=== PATIENT | male | born 1985 | race Caucasian/White ===

== ENCOUNTER 2023-11-06 15:16 | Outpatient (CLI) | payer MEDICAID, SELFPAY ==
--- NOTE | 2023-11-06 14:06 | DI.RAD_ITS ---
Exam(s) XR HIP PELVIS ADULT BL EXAM: XR HIP PELVIS ADULT BL CLINICAL HISTORY: eval L > R hip pain and restricted motion. TECHNIQUE: 2D digital imaging was performed. COMPARISON: No exams were available for comparison FINDINGS: 3 views No evidence of pelvic nor hip moderate degenerative changes in both hips. More so on the left side. Bone density normal. No osseous lesions IMPRESSION: Significant osteoarthritic changes both knees. DATA REPOSITORY: RADIATION DOSE DELIVERED:
--- NOTE | 2023-11-06 14:06 | DI.RAD_ITS ---
Exam(s) XR KNEE LT 4V AP,LAT,GREY,PAT EXAM: XR KNEE LT 4V AP,LAT,GREY,PAT CLINICAL HISTORY: eval anterolateral left knee pain. TECHNIQUE: 2D digital imaging was performed. COMPARISON: No exams were available for comparison FINDINGS: Four views No evidence of fracture. Small amount of increased joint fluid. No large joint effusion. There is no joint space narrowing. All 3 compartments exhibit normal height and no osteophytes nor degenerati ve subarticular cysts noted. No patellar off tracking. No osseous lesions. Bone density normal. IMPRESSION: No significant osseous findings in the knee. Subtle suggestion small amount of increased joint fluid . DATA REPOSITORY: RADIATION DOSE DELIVERED:
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
== END 2023-11-06 15:17 | disposition home or self-care (01) ==
LOC: DIORS 15:16
PROVIDERS: PCP Nurse Practitioner; Visit Provider Student in an Organized Health Care Education/Training Program
DX: M17.0 Bilateral primary osteoarthritis of knee (principal)
CPT/HCPCS: 73521; 73564

== ENCOUNTER 2024-01-22 05:08 | Outpatient (CLI) | payer MEDICAID, SELFPAY ==
[2024-01-22 10:31] LABS: HCT 45.5 % (40.0-50.0); HGB 15.7 g/dL (13.5-17.5); MCH 31.3 pg (27.0-33.0); MCHC 34.5 % (32.0-36.0); MCV 91 fL (80-95); MPV 10.4 fL (8.0-11.0); Platelet Count 238 10^3/uL (130-400); RBC 5.02 10^6/uL (4.36-5.78); RDW 12.2 % (11.8-14.1); RDW-SD 40.3 fL; WBC 4.92 10^3/uL (4.4-10.8)
[2024-01-22 10:44] LABS: Anion Gap 9.8 mmol/L (3-11); BUN 20 mg/dL (7-18); CO2 28.2 mmol/L (21.0-32.0); CREATININE 0.8 mg/dL (0.70-1.30); Calcium 9.3 mg/dL (8.5-10.1); Chloride 103 mmol/L (98-107); Estimated GFR 117.63 (mL/min/1.73m2); Glucose 96 mg/dL (74-106); Sodium 141 mmol/L (136-145)
== END 2024-01-22 05:09 | disposition home or self-care (01) ==
LOC: LBO 05:08
PROVIDERS: PCP Nurse Practitioner; Visit Provider Student in an Organized Health Care Education/Training Program
DX: Z01.818 Encounter for other preprocedural examination; M16.0 Bilateral primary osteoarthritis of hip
CPT/HCPCS: 36415; 80048; 85027; 86850; 86900; 86901

== ENCOUNTER 2024-02-04 08:35 | Day surgery (SDC) | payer MEDICAID, SELFPAY ==
[2024-02-04] VITALS (14 sets, daily range): BP systolic 94–170; BP diastolic 55–143; PULSE 64–706; RESP 14–27; TEMP 36.2–36.7; O2SAT 98–100; BMI 25.2
--- NOTE | 2024-02-04 07:25 | PDOC.DSDIS_ITS ---
Date of service: 02/04/24 Time of Service: 07:25 Discharge Plan Disposition Patient Disposition: Home Condition: Good Discharge Details Reason For Visit: B/L THR Attending Provider: Aj Mercado Primary Care Provider: Yamilka Serra Home Meds and New Rx's Prescriptions: New celecoxib 200 mg capsule 200 mg PO BID Qty: 60 0RF aspirin 81 mg tablet,delayed release (DR/EC) 81 mg PO BID Qty: 60 0RF acetaminophen 500 mg tablet 1,000 mg PO TID Qty: 90 3RF pantoprazole 40 mg tablet,delayed release (DR/EC) 40 mg PO DAILY Qty: 30 0RF dexamethasone 4 mg tablet 4 mg PO DAILY Qty: 2 0RF oxycodone 5 mg tablet 5 mg PO Q4H MDD 6 tabs PRN (Reason: pain) Qty: 20 0RF Continued cholecalciferol (vitamin D3) 50 mcg (2,000 unit) capsule 50 mcg PO DAILY Patient Comments: 1 gummie daily methocarbamol 500 mg tablet 500 - 1,000 mg PO TID PRN (Reason: muscle spasm) Qty: 30 1RF Rx Instructions: Muscle spasm valacyclovir 1 gram tablet 2,000 mg PO BID PRN (Reason: cold sores) Qty: 12 12RF Rx Instructions: 2 tabs BID for one day. Use PRN. omega-3 fatty acids-fish oil 360-1,200 mg capsule 1 cap PO DAILY No Action prednisone 1 mg tablet 1 mg PO QDAY Discharge Instructions Additional Instructions: Total Hip Discharge Instructions Activity: The most important activity is to walk. You should try to take short walks a few times a day. You have no restrictions on movement or positioning, but do not try to force what you do. You will find some stiffness and weakness with hip flexion (lifting your knee). Do not try to strengthen this too early, continue to practice walking and stairs and this will come. - Outpatient physical therapy can be helpful to help return you to a normal gait and improve your flexibility and strength. This can start around 2 weeks. For some patients, it?s not necessary. Usually this is determined at the time of discharge or at the first post-operative visit. - You should wear the HODAN hose on both legs for 2 weeks. Dressing: Keep the surgical dressing in place for at least one week. After the first week it may be removed and replace with light gauze and tape or nothing. It may get wet after 3 days but avoid soaking the dressing. If it gets wet, just lightly pat dry. It is important to always keep some gauze between skin folds, especially when you are sitting. Spend some time with the wound exposed when you are lying flat as the incision does wrinkle onto itself. Medications: - You should take Tylenol and an anti-inflammatory Celebrex as your primary pain control medications. If the Celebrex is too expensive or not covered, please call the office for another alternative (Advil/Ibuprofen or Naproxen/Aleve). - You have been prescribed a stronger pain medication Oxycodone for breakthrough pain, take as needed as prescribed. - You have also been prescribed a stomach acid reduction agent Pantoprozole to help reduce stomach acid and reflux. - You have also been prescribed Decadron to help with post-operative nausea and pain. You will take this for two days starting tomorrow. - You will be taking Aspirin 81mg twice a day for DVT prevention unless instructed otherwise. - If you have constipation you should take Colace or Miralax (both [id number]). It takes most people 3-4 days to have a bowel movement. Follow-up: 2 weeks If you have any acute concerns or questions, please do not hesitate to contact the office at [phone]. You may contact Dr. Mercado with any questions after hours through the hospital at [phone] or on his cell phone at [phone]. Stand Alone Forms: Anesthesia Discharge InstAnthony, Leif Randolph ([facility]) Referrals: Aj Mercado MD [ [facility] STAFF PHYSICIAN] - 02/19/24 9:00 am Equipment/Supplies: Walker Activity:: Activity as Tolerated Shower/Bathe:: 72 hours Diet:: As Tolerated Discharge Orders Discharge Orders: Discharge Order (Routine); Ordered 02/04/24 Ordered By: Dino Palacios DS: Diagnosis Discharge Diagnosis (1) Primary localized osteoarthritis of right hip: Status: Acute (2) Primary osteoarthritis of left hip: Status: Acute
[2024-02-04] MEDS: Acetaminophen 500 MG TAB 1000 MG PO (09:14)
[2024-02-04] MEDS: Celecoxib 200 MG CAP 400 MG PO (09:14)
[2024-02-04] MEDS: Lactated Ringers 1,000 ML 80 ML IV (09:17)
--- NOTE | 2024-02-04 09:19 | ANES.PREOP_ITS ---
General Info Date of Service Date Performed: 02/04/24 Height: 5 ft 11 in Weight: 82.3 kg Body Mass Index (BMI): 25.2 Surgical Procedure: Operation Date: 02/04/24 11:30 Proposed Procedure Side Surgeon p Hip Total Hip Anterior Bilateral Bilateral Aj Mercado MD Meds Allergies and Home Medications Allergies Allergy/AdvReac Type Severity Reaction Status Date / Time No Known Allergies Allergy Verified 02/02/24 12:42 Home Medication Medication Instructions Recorded omega-3 fatty acids-fish oil 360 1 cap PO DAILY 11/28/21 mg-1,200 mg capsule cholecalciferol (vitamin D3) 50 50 mcg PO DAILY 10/15/22 mcg (2,000 unit) capsule methocarbamol 500 mg tablet 500 - 1,000 mg (1 - 2 x 500 mg) PO 07/14/23 TID PRN muscle spasm #30 tabs valacyclovir 1 gram tablet 2,000 mg (2 x 1 gram) PO BID PRN 07/14/23 cold sores #12 tabs acetaminophen 500 mg tablet 1,000 mg (2 x 500 mg) PO TID #90 02/04/24 tabs aspirin 81 mg tablet,delayed 81 mg PO BID #60 tabs 02/04/24 release celecoxib 200 mg capsule 200 mg PO BID #60 caps 02/04/24 dexamethasone 4 mg tablet 4 mg PO DAILY #2 tabs 02/04/24 oxycodone 5 mg tablet 5 mg PO Q4H PRN pain #20 tabs 02/04/24 pantoprazole 40 mg tablet,delayed 40 mg PO DAILY #30 tabs 02/04/24 release prednisone 1 mg tablet 1 mg PO QDAY 02/04/24 Current Visit Medications: Current Medications Generic Name Dose Route Start Last Admin Trade Name Freq PRN Reason Stop Dose Admin Acetaminophen 1,000 mg 02/04/24 06:00 Acetaminophen 500 Mg Tab PO 03/05/24 05:59 PREOP DIO Acetaminophen 1,000 mg 02/04/24 07:22 Acetaminophen 500 Mg Tab PO 03/05/24 07:21 TID PRN PRN Analgesia Celecoxib 400 mg 02/04/24 06:00 Celecoxib 200 Mg Cap PO 03/05/24 05:59 PREOP DIO Docusate Sodium 100 mg 02/04/24 07:22 Docusate Sodium 100 Mg Cap PO 03/05/24 07:21 BID PRN PRN Constipation Ringer's Solution 1,000 mls @ 80 mls/hr 02/04/24 06:00 IV 03/04/24 23:59 INFUSION DIO Cefazolin Sodium/Dextrose 2 gm in 50 mls @ 100 mls/hr 02/04/24 06:00 Ancef Duplex IVPB 03/04/24 23:59 PREOP DIO Tranexamic Acid/Sodium Chloride 1,000 mg in 100 mls @ 600 mls/hr 02/04/24 06:00 IVPB 03/04/24 23:59 PREOP DIO Tranexamic Acid/Sodium Chloride 1,000 mg in 100 mls @ 600 mls/hr 02/04/24 06:00 IVPB 03/04/24 23:59 DIRECTED [facility] IV Miscellaneous Supplies 1 each 02/04/24 06:00 Iv Access IV 03/04/24 23:59 DIRECTED DIO Ondansetron HCl 4 mg 02/04/24 07:22 Ondansetron 4 Mg/2 Ml Vial IVP 03/05/24 07:21 Q6H PRN PRN Nausea Oxycodone HCl 0 mg 02/04/24 07:22 Oxycodone 5 Mg Tab PO 03/05/24 07:21 Q3H PRN PRN Pain Pantoprazole Sodium 40 mg 02/05/24 07:30 Pantoprazole 40 Mg Tabcr PO 03/06/24 07:29 DAILY@0730 DIO Polyethylene Glycol 17 gm 02/04/24 07:22 Polyethylene Glycol 3350 17 Gm Packet PO 03/05/24 07:21 BID PRN PRN Constipation Sodium Chloride 0 ml 02/04/24 06:00 Normal Saline Flush 10 Ml Syr IV 03/04/24 23:59 PRN PRN Sodium Chloride 0 ml 02/04/24 06:00 Normal Saline 10 Ml Vial IJ 03/04/24 23:59 DIRECTED PRN Sterile Water 0 ml 02/04/24 06:00 Water,Injection,Sterile 10 Ml Vial IJ 03/04/24 23:59 DIRECTED PRN PFSH Active Problems Active Problems: Problem Status Onset Code Iliotibial band syndrome, left leg M76.32 Primary localized osteoarthritis of right hip M16.11 Primary osteoarthritis of left hip M16.12 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 Vital Signs and Lab Results Vital Signs Most Recent Vital Signs in EMR: Most Recent Vital Signs Temp Pulse Resp BP Pulse Ox 36.7 C 64 16 103/66 99 02/04/24 09:03 02/04/24 09:03 02/04/24 09:03 02/04/24 09:03 02/04/24 09:03 Lab Results Blood Type / Crossmatch: Patient ABO/Rh A Positive 01/22/24 Antibody Screen NEGATIVE 01/22/24 Complete Blood Count: White Blood Count 4.92 10^3/uL (4.4-10.8) 01/22/24 10:05 Red Blood Count 5.02 10^6/uL (4.36-5.78) 01/22/24 10:05 Hemoglobin 15.7 g/dL (13.5-17.5) 01/22/24 10:05 Hematocrit 45.5 % (40.0-50.0) 01/22/24 10:05 Platelet Count 238 10^3/uL (130-400) 01/22/24 10:05 Complete Metabolic Panel: Sodium 141 mmol/L (136-145) 01/22/24 10:05 Potassium 4.0 mmol/L (3.5-5.1) 01/22/24 10:05 Chloride 103 mmol/L (98-107) 01/22/24 10:05 Carbon Dioxide 28.2 mmol/L (21.0-32.0) 01/22/24 10:05 BUN 20 mg/dL (7-18) H 01/22/24 10:05 Creatinine 0.8 mg/dL (0.70-1.30) 01/22/24 10:05 Est GFR (CKD-EPI 2020) 117.63 (mL/min/1.73m2) 01/22/24 10:05 Calcium 9.3 mg/dL (8.5-10.1) 01/22/24 10:05 Glucose 96 mg/dL (74-106) 01/22/24 10:05 Liver Function Panel: No Data to Display Coagulation Panel: No Data to Display Cardiac Panel: No Data to Display Arterial Blood Gas: No Data to Display Venous Blood Gas: No Data to Display Pancreas Panel: No Data to Display Thyroid Panel: No Data to Display Infectious Disease: No Data to Display Blood Cultures: No Data to Display Toxicology Panel: No Data to Display Anesthesia Assessment and Plan Anesthesia History Personal History: No History of Anesthesia Complications Family History: No Family History of Anesthesia Complications Exercise Tolerance Exercise Tolerance: Metabolic Equivalents>4 Cardiac & Pulmonary Exam Cardiac Exam: Normal S1/S2 Heart Sounds Pulmonary Exam: Wheezing Present (slight wheeze, lower .) Implantable Cardiac Device Does patient have a Pacemaker or an ICD?: No Airway Exam Known Difficult Airway: No Mallampati Class: 2 Mouth Opening: Normal (> 3cm) Thyromental Distance: Greater than 3 cm Facial Hair: Full Bird Neck Range of Motion: Full ROM Neck Circumference: Normal Teeth Condition: Normal Dentition ASA Classification ASA Score: ASA 2 Emergency Case?: No NPO Status NPO Status: NPO Clears >2 hours, Solids >8 hours Anesthesia Plan Resuscitation Status: Full Code Anesthesia Technique: Spinal Anesthesia Airway Planned: Natural Airway Monitors Used: Standard Monitors Preoperative Comments:: 38 yo male for bilateral SHEEBA. Sig PMHx: denies major. Occ EtOH/cannabis. Discussed spinal vs general, is interested in spinal. Discussed timing of spinal and potential need for conversation to [place].
[2024-02-04] MEDS: ceFAZolin 2 GM/50 ML BAG IVPB (10:26)
[2024-02-04] MEDS: TRANEXAMIC ACID/SOD. CHL. 1,000 MG/100 ML BAG 600 MG IVPB ×2 (10:36→12:20)
--- NOTE | 2024-02-04 11:55 | DI.RAD_ITS ---
Exam(s) XR HIP LT IN OR EXAM: XR HIP LT IN OR CLINICAL HISTORY: PRIMARY OA LEFT HIP. TECHNIQUE: 2D and realtime digital imaging was performed. COMPARISON: CR XR HIP PELVIS ADULT BL from 11/06/2023 FINDINGS: A hard copy image shows placement of a left hip prosthesis. The alignment appears satisfactory. Please see procedure note for details. Fluoro time: 35.5seconds RADIATION DOSE DELIVERED: Ka,r=3.44 mGy
--- NOTE | 2024-02-04 13:19 | DI.RAD_ITS ---
Exam(s) XR HIP RT IN OR EXAM: XR HIP RT IN OR CLINICAL HISTORY: PRIMARY OA RIGHT HIP. TECHNIQUE: 2D and realtime digital imaging was performed. COMPARISON: CR XR HIP PELVIS ADULT BL from 11/06/2023 XA XR HIP LT IN OR from 02/04/2024 FINDINGS: A hard copy image shows placement of a hip prosthesis. The alignment appears satisfactory. Please see procedure note for details. Fluoro time: 35.9seconds RADIATION DOSE DELIVERED: karen Del Rosario=4.01 mGy
[2024-02-04] MEDS: fentaNYL 100 MCG/2 ML VIAL IVP ×2 (14:07→14:11)
[2024-02-04] MEDS: HYDROmorphone 2 MG/ML SYR IVP ×2 (14:19→14:32)
--- NOTE | 2024-02-04 14:49 | W.PM.OP ---
Date of service: 02/04/24 Time of Service: 11:00 Operative Note Operative Note DATE OF PROCEDURE: 02/04/24 PRE-OP DIAGNOSIS: Bilateral Hip Osteoarthritis POST-OP DIAGNOSIS: same PROCEDURE: Bilateral Anterior Total Hip Arthroplasty with Intraoperative Navigation SURGEON: Aj Mercado SHOULDER PUNCHER: Dino Palacios ANESTHESIA TYPE: General LMA/ETT and Spinal Refer to Anesthesia Record ESTIMATED BLOOD LOSS: 500 PATHOLOGY: none sent COMPLICATIONS: None Patient was transported to: PACU Patient's condition: stable Implants: RIGHT: 1. Depuy [place] Acetabular Component, 52mm 2. Depuy Acetabular Liner, [id number] 3. Depuy Actis High Offset Femoral Stem, Size 3 4. Depuy Altrx Ceramic Femoral Head, Size 36+1.5mm LEFT: 1. Depuy [place] Acetabular Component, 54mm 2. Depuy Acetabular Liner, [id number] 3. Depuy Actis High Offset Femoral Stem, Size 3 4. Depuy Altrx Ceramic Femoral Head, Size 36+1.5mm Indications: I have seen Amy in clinic for symptoms of hip arthritis, confirmed with radiographic findings. Amy has exhausted nonoperative methods and was having significant limitations in daily function and desired better function and less pain. I discussed the technical details of a hip replacement. I explained the risks of the procedure to include, but not limited to, bleeding, infection, pain, stiffness, fracture, damage to nerves and vessels, damage to muscles and tendons, loosening, instability, leg length inequality, need for repeat procedure, blood clot and cardiopulmonary demise. Despite these risks, Amy elected to proceed. Findings: There was significant signs of arthritis throughout both hips with deformity of the femoral head and large osteophytes. There was a loose, calcified anterior labrum of the right hip. Procedure Description: Amy was greeted in the preoperative holding area where the correct side was identified and marked. The consent was reviewed with the patient and signed. The history and physical was updated. All questions were answered. He was taken back to the operating room. A spinal anesthestic was then administered. The patient was placed into the supine position on the HANA table. Both feet were wrapped with Webrill cotton wrap along with Coban. LEFT Side The feet were placed in specialized boots for the HANA table, well seated within the boot and secured. SCDs were applied. The patient was then slid down onto a peroneal post. A preoperative AP hip was obtained to serve as a reference for determining leg lengths. Prophylactic antibiotics in the form of Cefazolin were administered. 1g of Tranxemic Acid was given intravenously within 30 minutes of incision. The left leg was then prepped with Chloraprep and draped in a standard fashion. A second prep with Chloraprep was performed prior to placement of a shower-curtain type drape with Iodine impregnated skin protection. A timeout to confirm correct identity, side and site, procedure, allergies, anesthesia, and medical concerns was performed. An obliquely oriented incision was made starting lateral to the ASIS and running distal over the Tensor Fascia Jill (TFL) muscle belly toward the fibular head, approximately 10cm. The skin and soft tissue was dissected sharply, through Bharath?s fascia, and to the fascia of the TFL. During this approach he seemed to react to the surgery and was thus converted to a general anesthetic. Then, with the fascia and superior border of the IT band identified, the fascia was incised with a new knife just above any perforators from the IT band. The TFL muscle belly was bluntly dissected away from the fascia and moved laterally. The fat between TFL and rectus was identified to ensure the dissection was not within the TFL. Blunt dissection created space between abductors and the capsule and retractor was placed over the lateral femoral neck. The fibers of the rectus femoris tendon were identified and these were freed from the anterior capsule. A second cobra retractor was placed around the medial femoral neck. The TFL was further retracted laterally to show the deep fascia. Careful dissection through this layer identified three main crossing vessels of the lateral femoral circumflex. These were cauterized in multiple locations and then cut without any noticeable bleeding. The TFL was further released bluntly from the deep fascia to expose anterior hip capsule and fat The James orthopaedic retractor was then placed beneath the TFL and against sartorius and medial soft tissues to protect and retract the soft tissues. A T-capsulotomy was then performed starting at the superior lateral acetabulum and moving distally to the intertrochanteric ridge. These capsular flaps were tagged with a No. 1 Ethibond and elevated from within. The capsular flaps were released to the shoulder of the lateral neck and to the lesser trochanter to give excellent visualization of the proximal femur. A neck osteotomy was performed using an oscillating saw based on preoperative templates. This cut started in the shoulder and of the lateral neck and exited medially. The saw was at all times directed medially to avoid injury to the greater trochanter. Gentle traction was applied to the leg and the osteotomy opened. The femoral head was removed with a corkscrew, making sure to protect the TFL on its exit. This was measured on the back table to determing the starting reamer size. Portions of the rectus obscuring visualization were minimally elevated off the superior acetabulum. An anterior retractor was placed over the anterior wall between capsule and labrum and attached to the Gripper retraction system. A posterior retractor was placed similarly. This provided excellent visualization. The contents of the cotyloid fossa were removed with electrocautery and the labrum was removed with a knife. There was a notable floor osteophyte. There was significant chondromalacia of the superior acetabulum. Acetabular reaming began with a 48mm reamer. This first reaming was directed anterior to posterior and medial to get down to the true floor. This was inspected and reamed until the true floor was reached. The anterior retractor was then released and entry and exit was provided by traction on the capsular flaps. I then reamed sequentially up to a 54mm reamer where good fit was obtained. The larger reamers were oriented based on anatomical reference of the anterior and lateral tate to ensure proper abduction and anteversion. Positioning and size was confirmed with the fluoroscopy. A 54mm Depuy [place] acetabular component was selected. The deep tissues were irrigated. The acetabular component was then impacted in a position of about 40-45 degrees of abduction and 15-20 degrees of anteversion, using the patient?s anatomy as the ultimate landmark. Fluoroscopy was used to confirm this. There was excellent audio operator of the acetabular component and the inserting handle was removed. The acetabular liner, Depuy [id number] polyethylene liner, was inserted and lined up with the tines of the acetabular component. There was no soft tissue interposition. The liner was then impacted into position and confirmed to be well-seated. A portion of the chinyere-articular cocktail was then injected around the acetabulum into the capsule and periosteum. This cocktail consisted of 123mg of Ropivacaine, 0.25mg of Epinephrine, 0.04mg of Clonidine, and 15mg of Ketorolac, diluted to 50cc. Traction was released from the femur. The leg was rotated to 120 degrees. Any remaining medial capsule was released until the lesser trochanter was easily palpable. A North retractor was placed medially. The lateral capsule was further released into the shoulder to allow access to the greater trochanter. A North retractor was placed over the greater trochanter which allowed the trochanter to flip in front of the capsule for excellent exposure. The leg was brought down into maximal extension and 20 degrees of adduction while ensuring there was no impingement on the acetabulum. Any remnant capsule within the trochanter was released. Piriformis and obturator externis were identified and protected. There was excellent access to the proximal femur. The lateral neck remnant was removed with a rongeur. A blunt canal probe was used to identify the canal and trajectory for later broaching. His bone was extremely dense that even the point canal probe had difficulties with finding a path. A box osteotome initiated the broach course with similar difficulty given his bone density. A small curved rasp and a curved curette were used to work laterally. Broaching then began with a starter Actis broach. This was inserted manually around the trochanter and into the canal before mallet blows. The broach was seated to a few millimeters below the cut level based on the neck cut and the preoperative template. Sequential broaching was continued with the Peeppl Mediase pneumatic broaching device until a tight fit was obtained with good rotational control of the femur. A trial standard neck was inserted along with a +8.5 trial head. The leg was brought out of extension and adduction and then reduced with traction and internal rotation. The leg was stable anteriorly in a position of 30 degrees of extension and 90 degrees of external rotation. Fluoroscopy was used to ensure there was no fracture and the stem was seated well. Leg lengths were checked with an AP pelvis and pelvic reference points. [employer] navigation system was used to confirm appropriate positioning and leg length and offset. This corrected the offset but over-lengthened him so converting to a high offset stem with a +1.5mm head was selected. Once content with the desired offset and leg lengths, the leg was brought back into extension, external rotation and adduction. The periosteum and surrounding tissue was injected with remaining portion of the chinyere-articular cocktail. The proximal femur was irrigated as well as the deep tissues. The prollieuy BUMP Networkis High OFfset stem, size 3, was then manually inserted into the proximal femur making sure to control rotation. It was then malleted into position with light blows, giving breaks to allow bone expansion and decrease risk of fracture. The selected Depuy Altrx Ceramic Head, size 36+1.5mm, was then placed onto the clean and dry trunnion and secured with impaction onto the tapered fit. The leg was brought back out of extension and adduction and reduced with traction and internal rotation. Stability was confirmed with no shuck at 90 degrees of external rotation and 30 degrees of extension. No impingement through range of motion arc. Final x-ray images were obtained with fluoroscopy to confirm adequate positioning and no intraoperative fracture. The deep tissues were thoroughly irrigated with Surgiphor betadine solution. The second dose of TXA 1g was administered intravenously.The capsule was then reapproximated with the previously placed Ethibond sutures. The TFL fascia was finally closed with a No. 2 Stratafix, barbed suture. Deep tissues were then reapproximated with 0 Vicryl and a running 2-0 Vicryl. The skin was closed with a running 4-0 Monocryl in a subcuticular fashion. This was reinforced with skin glue. A Mepilex silver dressing was applied. RIGHT Side Keeping the back table sterile, the drapes were removed, light handles changed, and fluoroscopy switched rooms sides. Once again, a AP hip was obtained to serve as a reference for determining leg lengths. The right leg was then prepped with Chloraprep and draped in a standard fashion. A second prep with Chloraprep was performed prior to placement of a shower-curtain type drape with Iodine impregnated skin protection. A timeout was once again performed to ensure that there were no issues to proceed. An obliquely oriented incision was made starting lateral to the ASIS and running distal over the Tensor Fascia Jill (TFL) muscle belly toward the fibular head, approximately 10cm. The skin and soft tissue was dissected sharply, through Bharath?s fascia, and to the fascia of the TFL. With the fascia and superior border of the IT band identified, the fascia was incised with a new knife just above any perforators from the IT band. The TFL muscle belly was bluntly dissected away from the fascia and moved laterally. The fat between TFL and rectus was identified to ensure the dissection was not within the TFL. Blunt dissection created space between abductors and the capsule and retractor was placed over the lateral femoral neck. The fibers of the rectus femoris tendon were identified and these were freed from the anterior capsule. A second cobra retractor was placed around the medial femoral neck. The TFL was further retracted laterally to show the deep fascia. Careful dissection through this layer identified three main crossing vessels of the lateral femoral circumflex. These were cauterized in multiple locations and then cut without any noticeable bleeding. The TFL was further released bluntly from the deep fascia to expose anterior hip capsule and fat The James orthopaedic retractor was then placed beneath the TFL and against sartorius and medial soft tissues to protect and retract the soft tissues. A T-capsulotomy was then performed starting at the superior lateral acetabulum and moving distally to the intertrochanteric ridge. These capsular flaps were tagged with a No. 1 Ethibond and elevated from within. The capsular flaps were released to the shoulder of the lateral neck and to the lesser trochanter to give excellent visualization of the proximal femur. A neck osteotomy was performed using an oscillating saw based on preoperative templates. This cut started in the shoulder and of the lateral neck and exited medially. The saw was at all times directed medially to avoid injury to the greater trochanter. Gentle traction was applied to the leg and the osteotomy opened. The femoral head was removed with a corkscrew, making sure to protect the TFL on its exit. This was measured on the back table to determing the starting reamer size. Portions of the rectus obscuring visualization were minimally elevated off the superior acetabulum. An anterior retractor was placed over the anterior wall between capsule and labrum and attached to the Gripper retraction system. A posterior retractor was placed similarly. This provided excellent visualization. The contents of the cotyloid fossa were removed with electrocautery and the labrum was removed with a knife. There was a notable floor osteophyte. There was significant chondromalacia of the superior acetabulum. The superior?anterior labrum was calcified and was loose. This was removed. Acetabular reaming began with a 47mm reamer. This first reaming was directed anterior to posterior and medial to get down to the true floor. This was inspected and reamed until the true floor was reached. The anterior retractor was then released and entry and exit was provided by traction on the capsular flaps. I then reamed sequentially up to a 52mm reamer where good fit was obtained. The larger reamers were oriented based on anatomical reference of the anterior and lateral tate to ensure proper abduction and anteversion. Positioning and size was confirmed with the fluoroscopy. A 52mm Depuy [place] acetabular component was selected. The acetabulum was reamed around the periphery with the selected acetabular size to prevent a rim fit. The deep tissues were irrigated. The acetabular component was then impacted in a position of about 40-45 degrees of abduction and 15-20 degrees of anteversion, using the patient?s anatomy as the ultimate landmark. Fluoroscopy was used to confirm this. There was excellent audio operator of the acetabular component and the inserting handle was removed. The acetabular liner, Depuy [id number] polyethylene liner, was inserted and lined up with the tines of the acetabular component. There was no soft tissue interposition. The liner was then impacted into position and confirmed to be well-seated. A portion of the chinyere-articular cocktail was then injected around the acetabulum into the capsule and periosteum. This cocktail consisted of 123mg of Ropivacaine, 0.25mg of Epinephrine, 0.04mg of Clonidine, and 15mg of Ketorolac, diluted to 50cc. Traction was released from the femur. The leg was rotated to 120 degrees. Any remaining medial capsule was released until the lesser trochanter was easily palpable. A North retractor was placed medially. The lateral capsule was further released into the shoulder to allow access to the greater trochanter. A North retractor was placed over the greater trochanter which allowed the trochanter to flip in front of the capsule for excellent exposure. The leg was brought down into maximal extension and 20 degrees of adduction while ensuring there was no impingement on the acetabulum. Any remnant capsule within the trochanter was released. Piriformis and obturator externis were identified and protected. There was excellent access to the proximal femur. The lateral neck remnant was removed with a rongeur. A blunt canal probe was used to identify the canal and trajectory for later broaching. A box osteotome initiated the broach course. A small curved rasp and a curved curette were used to work laterally. Broaching then began with a starter Actis broach. This was inserted manually around the trochanter and into the canal before mallet blows. The broach was seated to a few millimeters below the cut level based on the neck cut and the preoperative template. Sequential broaching was continued with the Peeppl Mediase pneumatic broaching device until a tight fit was obtained with good rotational control of the femur. A trial high offset neck was inserted along with a +1.5 trial head. The leg was brought out of extension and adduction and then reduced with traction and internal rotation. The leg was stable anteriorly in a position of 30 degrees of extension and 90 degrees of external rotation. Fluoroscopy was used to ensure there was no fracture and the stem was seated well. Leg lengths were checked with an AP pelvis and pelvic reference points. [employer] navigation system was used to confirm appropriate positioning and leg length and offset. Once content with the desired offset and leg lengths, the leg was brought back into extension, external rotation and adduction. The periosteum and surrounding tissue was injected with remaining portion of the chinyere-articular cocktail. The proximal femur was irrigated as well as the deep tissues. The Depuy Actis High Offset stem, size 3, was then manually inserted into the proximal femur making sure to control rotation. It was then malleted into position with light blows, giving breaks to allow bone expansion and decrease risk of fracture. The selected Depuy Altrx Ceramic Head, size 36+1.5mm, was then placed onto the clean and dry trunnion and secured with impaction onto the tapered fit. The leg was brought back out of extension and adduction and reduced with traction and internal rotation. Stability was confirmed with no shuck at 90 degrees of external rotation and 30 degrees of extension. No impingement through range of motion arc. Final x-ray images were obtained with fluoroscopy to confirm adequate positioning and no intraoperative fracture. The deep tissues were thoroughly irrigated with Surgiphor Betadine solution. The second dose of TXA 1g was administered intravenously.The capsule was then reapproximated with the previously placed Ethibond sutures. The TFL fascia was finally closed with a No. 2 Stratafix, barbed suture. Deep tissues were then reapproximated with 0 Vicryl and a running 2-0 Vicryl. The skin was closed with a running 4-0 Monocryl in a subcuticular fashion. This was reinforced with skin glue. A Mepilex silver dressing was applied. At the end of the case, all counts were correct. Amy was transferred to the hospital bed without difficulty and suffering no apparent complication. Amy has a good prognosis. Physical therapy will start today and without restrictions, weight-bearing as tolerated. Aspirin 81mg BID will be used for DVT prophylaxis.
--- NOTE | 2024-02-04 15:15 | W.ANESPOSTOP ---
Postoperative Evaluation Date, Time and Location Date Performed: 02/04/24 Time Performed: 15:15 Patient Location: PACU Vital Signs Most Recent Imported Vital Signs: Most Recent Vital Signs Temp Pulse Resp BP Pulse Ox 36.5 C 706 H 14 150/65 H 100 02/04/24 15:14 02/04/24 15:14 02/04/24 15:14 02/04/24 15:14 02/04/24 15:14 Pain Score Most Recent Pain Score: Most Recent Pain Score Pain Level 4 02/04/24 15:14 Assessment Mental Status: Awake (Alert & Oriented to Patient Baseline) Airway and Respiratory Function: Patent airway with normal (patient baseline) respiratory exam Cardiovascular Function: Hemodynamically Stable Hydration Status: Adequately Hydrated Nausea & Vomiting: No Nausea or Vomiting Pain: Pain is Moderate or Severe Postoperative Pain Management: Pain being addressed with medication Peripheral Nerve Block: Patient did not receive a nerve block
[2024-02-04] MEDS: oxyCODONE 5 MG TAB PO (16:03)
--- NOTE | 2024-02-04 16:08 | PT.INIE ---
PT Notes Visit Reasons: B/L THR Physical Therapy Day Surgery Initial Evaluation Date: 02/04/2024 Referring Doctor: LYNSEY Bryson PT Orders: PT CONSULT: S/P Ortho Surgery Precautions: WBAT on B LE with AD. 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 PMHX: Unremarkable Social History/Home Situation: Lives with in a priavte home with a flight of steps to enter with rails on B sides. 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 Equipment Owned/DME: None Subjective: Verbalized he waited for 5 years before he decided to have this surgery. became emotional when he was able to bend B hips and knees through the full range several times during heels slides with minimal pain. Not lightheaded. Objective: General Observation: Resting in bed. Mepilex Ag over surgical incision. TEDS to B legs. Mental Status: A and O x 4 Pain: 3-4/10 in B hips at rest ROM: Right Lower Extremity: Hip flexion WFL. Hip abduction WFL. Knee flexion WFL. Ankle dorsiflexion WFL. Ankle plantarflexion WFL. Left Lower Extremity: Hip flexion WFL. Hip abduction WFL. Knee flexion WFL. Ankle dorsiflexion WFL. Ankle plantarflexion WFL. Strength: Right Lower Extremity: Hip flexors 4-/5. Hip abductors 4-/5. Knee flexors 5/5. Knee extensors 4-/5. Ankle dorsiflexors 5/5. Ankle plantarflexors 5/5. Left Lower Extremity:Hip flexors 4-/5. Hip abductors 4-/5. Knee flexors 5/5. Knee extensors 4-/5. Ankle dorsiflexors 5/5. Ankle plantarflexors 5/5. Sensation: Some numbness in B gluteal areas other young intact in B LE Bed Mobility/Transfers: Supine to sit Minimal cueing provided for use of B hands as needed for support, movement sequence, AD management, and posture to reduce fall risk and minimize pain report Sit to stand stand by assist with FWW Stand to sit stand by assist with FWW Bed to chair stand by assist with FWW Gait: Facilitated safe and correct performance of level surface ambulation covering a distance of 150 feet using front wheel walker with step through reciprocal heel-toe gait pattern requiring only standby assist and minimal verbal cueing for correct gait pattern, walker management, and posture to reduce fall risk and minimize pain report. Stairs: Guided patient with safe and correct negotiation of 3 x 4 inch steps and 2 x 6 inch steps holding onto bilateral rails with step to gait pattern requiring only standby assist and minimal verbal cueing for limb sequence, hand placement, and posture to reduce fall risk and minimize pain report. Balance: Static Sitting: Normal Dynamic Sitting: Normal Static Standing: Fair Dynamic Standing: Fair Special Tests: Mobility Limitations Standardized Measure [facility] AM-PAC 6 clicks Basic Mobility Inpatient Short Form: Raw Score: 24 CMS Score: 0% deficit Informed Consent/Education: Patient instructed in purpose of PT consult. Packet containing SHEEBA exercise protocol has been given to patient. Education and training on initial set of exercises that can be done at home have been completed with patient. Trained patient with correct performance of exercises below to maximize motor control, joint flexibility, soft tissue extensibility of the B hip musculature to facilitate return to independent functional mobility performance. Access Code: [email or web address] URL: [email or web address] Date: Prepared by: Sanam Hernandez Exercises - Gluteal Sets - 1 x daily - 7 x weekly - 1 sets - 10 reps - 5 hold - Supine Heel Slide - 1 x daily - 7 x weekly - 1 sets - 10 reps - 5 hold - Supine Ankle Pumps - 1 x daily - 7 x weekly - 1 sets - 10 reps - 5 hold - Seated March - 1 x daily - 7 x weekly - 1 sets - 10 reps - 5 hold - Seated Long Arc Quad - 1 x daily - 7 x weekly - 1 sets - 10 reps - 5 hold Assessment: Patient requires use of front wheeled walker for all mobility ADL performance maximize independence, minimize pain report, and reduce fall risk. Patient presents with clinical signs and symptoms consistent with current/admitting diagnoses that have resulted to mobility limitations, gait instability, generalized weakness, and impairment of motor control as demonstrated by the following impairment level findings: 1. Decreased strength to B hip major muscle groups 2. Impaired standing balance Impairments are contributing to the following functional limitations: 1. Inability to safely ambulate without assistive device 2. Increase completion time for mobility ADL performance 3. Increased fall risk Patient is assessed as a 17142 moderate complexity based on the following: History: 38-year-old male with impairment level findings, functional limitations, and past medical history as indicated above Examination: Demonstrable impairment in strength, balance, and mobility level with underlying impairments and functional limitations as documented above Presentation: Evolving Decision Makin moderate complexity Goals: N/A. PT evaluation and 1-2 treatment sessions only for functional mobility training using recommended AD and for HEP instruction. Plan of Care/Treatment Plan: N/A. PT evaluation and 1-2 treatment session only for functional mobility training using recommended AD and for HEP instruction. DISCHARGE RECOMMENDATIONS: Home when medically cleared by orthopedic surgeon. Recommend outpatient PT services in order to optimize functional mobility outcomes and facilitate return to independent community ambulation without an assistive device. TREATMENT CODE/TIME: 76147 x 27 minutes for 1 unit (16:08-16:35). Thank you for the opportunity to participate in the care of this patient. Please sign an return this page within 30 days if you agree with the above POC. Thank you! Physician Signature Date [facility] Thank you for the opportunity to participate in the care of this patient. Sanam Hernandez PT, DPT, CLT [facility] [place], [place]
== END 2024-02-04 17:20 | disposition home or self-care (01) ==
PROVIDERS: PCP Nurse Practitioner; Visit Provider Student in an Organized Health Care Education/Training Program
PROC: 0SR90JZ Replacement of Right Hip Joint with Synthetic Substitute, Open Approach (ICD-10-PCS; CPT 27130; principal; 2024-02-04 11:00)
DX: M16.0 Bilateral primary osteoarthritis of hip (principal); F12.90 Cannabis use, unspecified, uncomplicated
CPT/HCPCS: 27130; 20985; 97162; 73501; C1776; J0690; J1100; J1170; J2250; J2405; J2704; J3010

== ENCOUNTER 2024-02-19 10:27 | Outpatient (CLI) | payer MEDICAID, SELFPAY ==
--- NOTE | 2024-02-19 09:16 | DI.RAD_ITS ---
Exam(s) XR HIP PELVIS ADULT BL EXAM: XR HIP PELVIS ADULT BL CLINICAL HISTORY: 1ST POST OP S/P BILAT THAs. TECHNIQUE: 2D digital imaging was performed. COMPARISON: Prior x-rays 11/06/2023 FINDINGS: 3 views There are now bilateral hip prostheses. Both appear to be in satisfactory position alignment. No fr actures nor obvious loosening evident. Bone density normal. No evidence of osteomyelitis. IMPRESSION: Satisfactory appearance of the recently placed bilateral hip prostheses. DATA REPOSITORY: RADIATION DOSE DELIVERED:
== END 2024-02-19 10:28 | disposition home or self-care (01) ==
LOC: DIORS 10:28
PROVIDERS: PCP Nurse Practitioner; Referring Provider Nurse Practitioner; Visit Provider Physician Assistant
DX: Z96.643 Presence of artificial hip joint, bilateral (principal); Z47.1 Aftercare following joint replacement surgery
CPT/HCPCS: 73521

== ENCOUNTER 2024-11-12 00:52 | Outpatient (CLI) | payer MEDICAID, SELFPAY ==
[2024-11-12 10:12] LABS: Calculated LDL 121 mg/dL (<100); Cholesterol 185 mg/dL (<200); HDL Cholesterol 55 mg/dL (40-60); Triglyceride 47 mg/dL (<150)
[2024-11-12 18:35] LABS: Hepatitis C Ab w Rflx HCV PCR Negative (Negative)
[2024-11-12 19:21] LABS: HIV-1/2 Ag & Ab Screen Negative (Negative)
== END 2024-11-12 00:53 | disposition home or self-care (01) ==
LOC: LBO 00:52
PROVIDERS: PCP Nurse Practitioner; Referring Provider Nurse Practitioner; Visit Provider Nurse Practitioner
DX: Z13.220 Encounter for screening for lipoid disorders (principal); Z11.59 Encounter for screening for other viral diseases
CPT/HCPCS: 36415; 80061; 86803; 87389

== ENCOUNTER 2024-12-14 07:39 | Outpatient (CLI) | payer MEDICAID, SELFPAY ==
--- NOTE | 2024-12-14 06:20 | DI.US_ITS ---
Exam(s) US HERNIA EXAM: US HERNIA CLINICAL HISTORY: ? right inguinal hernia,inguinal pain,r10.30,k46.9. TECHNIQUE: Ultrasound was performed using standard protocol. COMPARISON: No exams were available for comparison FINDINGS: Sonographic assessment utilizing grayscale and color Doppler imaging was performed and targeted to th e area of clinical concern. No definite sonographic evidence of a right inguinal hernia. If there is continued clinical concern a CT scan may be obtained for further evaluation. Normal appearing lymph nodes are seen in the right inguinal region. The largest measures 1.2 cm. IMPRESSION: DATA REPOSITORY:
== END 2024-12-14 07:59 ==
LOC: DI 07:39
PROVIDERS: PCP Nurse Practitioner; Visit Provider Surgery
DX: R10.30 Lower abdominal pain, unspecified (principal); K46.9 Unspecified abdominal hernia without obstruction or gangrene
CPT/HCPCS: 76857

== ENCOUNTER 2025-01-13 15:26 | Outpatient (CLI) | payer MEDICAID, SELFPAY ==
--- NOTE | 2025-01-13 08:00 | DI.RAD_ITS ---
Exam(s) XR KNEE RT 4V AP,LAT,GREY,PAT EXAM: XR KNEE RT 4V AP,LAT,GREY,PAT CLINICAL HISTORY: RIGHT KNEE PAIN. TECHNIQUE: 2D digital imaging was performed. Three views. COMPARISON: CR XR KNEE LT 4V AP,LAT,GREY,PAT from 11/06/2023 FINDINGS: BONES: No acute fracture is present. No bony destructive lesion is seen. JOINTS: The knee is normally aligned. The joint spaces are maintained. Minimal periarticular spurri ng. No joint effusion is seen. SOFT TISSUE: Normal. IMPRESSION: Minimal degenerative changes. DATA REPOSITORY: RADIATION DOSE DELIVERED:
--- NOTE | 2025-01-13 08:15 | DI.RAD_ITS ---
Exam(s) XR HIP PELVIS ADULT BL EXAM: XR HIP PELVIS ADULT BL CLINICAL HISTORY: ANNUAL F/U BILAT THAs. TECHNIQUE: 2D digital imaging was performed. Three views. COMPARISON: CR XR HIP PELVIS ADULT BL from 02/19/2024 FINDINGS: BONES: No acute fracture is present. No bony destructive lesion is seen. JOINTS: No dislocation present. Stable alignment of the bilateral hip prostheses. SI joints and p ubic symphysis are unremarkable. SOFT TISSUE: Normal. IMPRESSION: Stable appearance of bilateral hip prostheses. DATA REPOSITORY: RADIATION DOSE DELIVERED:
== END 2025-01-13 15:27 | disposition home or self-care (01) ==
LOC: DIORS 15:30
PROVIDERS: PCP Nurse Practitioner; Visit Provider Student in an Organized Health Care Education/Training Program
DX: M25.561 Pain in right knee (principal); Z96.643 Presence of artificial hip joint, bilateral
CPT/HCPCS: 73521; 73564